=== PATIENT | female | born 1955 | race Caucasian/White ===

== ENCOUNTER 2016-05-29 21:02 | Emergency (ER) | payer OTHER ==
[~2016-05-29] VITALS: Ht 167.6 cm; Wt 49.9 kg
[~2016-05-29 21:02] MED LIST: NKM; OCUFLOX5 ML LEFT EYE
[2016-05-29 21:36] VITALS: BP 124/83
[2016-05-29] MEDS ORDERED: Lidocaine 1% Plain 30 ml INJ ONE (23:30)
[2016-05-29] MEDS ORDERED: TdaP Vaccine 0.5ml Syr IM ONE (23:30)
[2016-05-29] MEDS ORDERED: KEFLEX500 MG ORAL (23:51)
[2016-05-29] MEDS ORDERED: IBUPROFEN400 M1 PO (23:51)
[2016-05-30 00:01] VITALS: BP 121/89
[2016-05-30 00:50] VITALS: BP 124/83
--- NOTE | 2016-05-30 02:26 | Emergency Room Report ---
History of Present Illness General Chief Complaint: Laceration Source: Patient Present Illness HPI 60 YOF c/o pain/swelling/laceration to right index finger s/p accidentally slamming it in door earlier at office. Denies ASA, blood thinner. Denies previous injury. Unknown last tetanus. Allergies: Coded Allergies: No Known Allergies (Unverified , 07/24/15) Patient History Past Medical History: none Past Surgical History: none Pertinent Family History: none Social History: Denies: alcohol use, drug use, smoking Last Menstrual Period: N/A Now: No Immunizations: UTD Reviewed Nursing Documentation: PMH: Agreed, PSxH: Agreed Nursing Documentation-PMH Past Medical History: No Stated History Review of Systems All Other Systems: negative except mentioned in HPI Physical Exam Vital Signs Date Time Temp Pulse Resp B/P Pulse Ox O2 Delivery O2 Flow Rate FiO2 05/29/16 21:29 98.1 83 20 02/17 97 Room Air Sp02 EP Interpretation: reviewed, normal General Appearance: normal inspection, well appearing, no apparent distress, alert, other - Patient comes into ER with dog Head: atraumatic ENT: normal ENT inspection, hearing grossly normal, normal voice Neck: normal inspection, full range of motion, supple, no bony tend Respiratory: normal inspection, lungs clear, normal breath sounds, no respiratory distress, no retraction, no wheezing Cardiovascular #1: regular rate, rhythm, no edema Gastrointestinal: normal inspection, normal bowel sounds, non tender, soft, no guarding, no hernia Genitourinary: no CVA tenderness Musculoskeletal: other - Right index finger: There is a 1cm laceration distal to right index finger nail across dorsal aspect of DIP. Some oozing of blood. Motor/sensation intact to finger Neurologic: normal inspection, alert, oriented x3, responsive, jigger artisan III-XII nml as tested, motor strength/tone normal, speech normal Psychiatric: normal inspection, judgement/insight normal, mood/affect normal Skin: normal inspection, normal color, no rash Lymphatic: normal inspection Medical Decision Making Diagnostic Impression: Primary Impression: Fracture of distal phalanx of finger of right hand ER Course Patient has an open fracture of right index finger s/p trauma. VSS. Afebrile. Patient comes into ER with her dog. It is not a service dog. Was told animals are not allowed in ER unless service dogs. Patient repeatedly ignores this. Patient was repeatedly disruptive of ER staff, operation, and other patients during her visit. She was walking around the ER dripping blood despite repeated attempts asking her to keep bandage on, stay in her chair/room. She repeatedly interrupted me when I was taking care of other patients She refused to allow me to place a digital nerve block of the right index finger so we could irrigate with high-pressure water She refused to allow me to place a few sutures to approximate wound She was eating a sandwich and feeding it to her dog on the sterile table I had set up to clean/anesthetize/repair wound. 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 Patient repeatedly questioning my evaluation and proposed treatment of her injury. She eventually allowed tech to clean wound and place splint I gave Rx Abx for open fracture and recommended PMD referral to Hand/Ortho Tetanus was updated in the ED Other X-Ray Diagnostic Results Other X-Ray Diagnostic Results : X-Ray Ordered: right hand EP Interpretation: Yes Findings: no dislocation, other - Distal phalanx proximal fracture of right 2nd finger with soft tissue swelling Number of Views: 3 Last Vital Signs Date Time Temp Pulse Resp B/P Pulse Ox O2 Delivery O2 Flow Rate FiO2 05/30/16 00:50 98.1 83 20 124/83 97 Room Air Status: improved Disposition: HOME, SELF-CARE Condition: Improved Scripts Ibuprofen (Ibuprofen) 400 Mg Tablet 400 MG PO TID for 7 Days, #30 TAB Prov: MACY TAM M.D. 05/29/16 Cephalexin* (KEFLEX*) 500 Mg Capsule 500 MG ORAL Q6H for 7 Days, #28 CAP 0 Refills Prov: MACY TAM M.D. 05/29/16 Patient Instructions: Finger Fracture, [id number], Nonsutured Laceration Care Additional Instructions: - Please ask your primary care doctor to refer you to hand specialist to evaluate fracture of distal 2nd finger phalanx - Take all antibiotics to prevent secondary wound infection - Take ibuprofen as needed for pain MACY TAM M.D. May 30, 2016 02:26
--- NOTE | 2016-05-30 10:55 | Diagnostic Imaging Report ---
Indication: PAIN Technique: 3 views right hand Comparison: none Findings: There is a transverse intra-articular fracture of the base of the second distal phalanx. No other acute fractures. No dislocations. The bones are questionably osteoporotic, although this could be artifact of exposure technique. Impression: Positive for second distal phalangeal fracture. Electronic medical record indicates this was recognized by the emergency room physician
== END 2016-05-30 00:50 | disposition home or self-care (01) ==
LOC: EMR 22:50
DX: S62.630A Displaced fracture of distal phalanx of right index finger, initial encounter for closed fracture (principal); Y92.89 Other specified places as the place of occurrence of the external cause; W22.8XXA Striking against or struck by other objects, initial encounter; S61.210A Laceration without foreign body of right index finger without damage to nail, initial encounter; Z23 Encounter for immunization
CPT/HCPCS: 73130; 90471; 90715; 96372; 99284; J2001